=== PATIENT | female | born 1935 | race Caucasian/White ===

== ENCOUNTER → 2016-10-24 11:15 | Outpatient (CLI) | payer MEDICARE, OTHER | END | disposition home or self-care (01) | LOC: D.MRI 11:15 | DX: G11.1 Early-onset cerebellar ataxia (principal); I10 Essential (primary) hypertension ==

== ENCOUNTER → 2017-02-06 12:49 | Outpatient (CLI) | payer MEDICARE, OTHER ==
[2017-02-06 13:29] LABS: CREATININE - SERUM 0.6 mg/dL (0.6-1.3)
== END | disposition home or self-care (01) ==
LOC: D.LAB 12:49 → D.CT 13:30
PROVIDERS: Psychiatry & Neurology Neurology
DX: I10 Essential (primary) hypertension (principal); I63.449 Cerebral infarction due to embolism of unspecified cerebellar artery; I63.139 Cerebral infarction due to embolism of unspecified carotid artery